=== PATIENT | female | born 1995 | race Caucasian/White ===

== ENCOUNTER 2016-05-08 19:18 | Observation (INO) | payer BC ==
[~2016-05-08] VITALS: Ht 160 cm; Wt 48.0 kg
[~2016-05-08 19:18] MED LIST: CAMILA0.35 MG PO; IBUPROFEN800 MG PO; PRENATAL TABLE1 EAC3 PO; ZOLOFT50 MG PO
[2016-05-08 20:04] LABS: HEMATOCRIT 35.1 % (36.0-46.0); MCH 31.6 PG (29.0-34.0); MCHC 32.8 G/DL (30.0-36.0); MCV 96.4 FL (83-99); RBC DIS.WIDTH-CV 11.9 % (11.8-14.6); RBC DIS.WIDTH-SD 40.3 % (39-53); RED BLOOD COUNT 3.64 M/uL (3.80-5.20); WHITE BLOOD COUNT 8.5 K/uL (4.1-10.2)
[2016-05-08 20:07] LABS: MEAN PLAT.VOLUME 10.7 uM^3 (9.5-12.4)
[2016-05-08 20:10] LABS: PLATELET COUNT 288 K/uL (156-360)
[2016-05-08 20:18] LABS: ADD MIUA? YES; BILIRUBIN NEGATIVE; BLOOD MODERATE; COLOR YELLOW ((YELLOW)); GLUCOSE (STRIP) NEGATIVE; KETONES NEGATIVE; LEUKOCYTES LARGE; NITRITE NEGATIVE; PH, URINE 7.5 (5-8); PROTEIN (STRIP) NEGATIVE; SPECIFIC GRAVITY 1.011 (1.000-1.030); UROBILINOGEN 0.2 MG/DL (0.2-1.0)
[2016-05-08 20:19] LABS: CHLORIDE 104 mEq/L (99-109); POTASSIUM 3.8 mEq/L (3.7-5.4); SODIUM 138 mEq/L (136-147)
[2016-05-08 20:22] LABS: GLUCOSE 73 mg/dL (70-99)
[2016-05-08 20:23] LABS: ANION GAP 10 MEQ/L (2-14)
[2016-05-08 20:24] LABS: TOTAL BILIRUBIN 0.3 mg/dL (0.0-1.0)
[2016-05-08 20:25] LABS: ALKALINE PHOSPHATASE 81 IU/L (3-129); GFR ESTIMATE (CALCULATED) > 59 mL/min/
[2016-05-08 20:26] LABS: UREA NITROGEN (BUN) 11 mg/dL (9-23)
[2016-05-08 20:29] LABS: LIPASE 16 U/L (1.0-51.0)
[2016-05-08 20:35] LABS: QUANTITATIVE HCG < 4.0 MIU/ML
[2016-05-08 20:40] LABS: BACTERIA NONE SEEN; CASTS NONE SEEN /LPF; CRYSTALS NONE SEEN; EPITHELIAL CELLS RARE; MUCUS NONE SEEN; PATHOLOGICAL CAST NONE SEEN; SMALL ROUND CELL NONE SEEN; UCUL ADDED? YES; WHITE BLOOD CELLS TNTC /HPF (0-5); YEAST-LIKE CELL NONE SEEN
[2016-05-08 20:48] LABS: EOSINOPHIL (%) 2.1 % (0-5); EOSINOPHIL COUNT 0.2 K/uL (0-0.3); IMMATURE GRANULOCYTE (%) 0.1 % (0.0-0.7); IMMATURE GRANULOCYTE COUNT 0.1 K/uL; MONOCYTE COUNT 0.5 K/uL (0-0.8); NEUTROPHIL (%) 79.5 % (45-76); NEUTROPHIL COUNT 6.7 K/uL (1.8-6.4)
[2016-05-09] MEDS ORDERED: SALINE SOLUTIO355 ML MC (00:22)
[2016-05-09] MEDS ORDERED: CAMILA0.35 MG PO (00:22)
[2016-05-09 02:17] VITALS: BP 93/52
[2016-05-09 06:09] VITALS: BP 91/50
[2016-05-09 08:00] VITALS: BP 101/57
[2016-05-09 10:32] LABS: HEMATOCRIT 28.9 % (36.0-46.0); MCH 31.1 PG (29.0-34.0); MCHC 32.5 G/DL (30.0-36.0); MCV 95.7 FL (83-99); PLATELET COUNT 230 K/uL (156-360); RBC DIS.WIDTH-CV 12.3 % (11.8-14.6); RBC DIS.WIDTH-SD 43.1 % (39-53); RED BLOOD COUNT 3.02 M/uL (3.80-5.20); WHITE BLOOD COUNT 7.9 K/uL (4.1-10.2)
[2016-05-09 12:00] VITALS: BP 112/63
[2016-05-09 17:50] VITALS: BP 100/54
[2016-05-09 22:57] VITALS: BP 99/57
[2016-05-10 04:00] VITALS: BP 106/63
[2016-05-10 06:33] LABS: HEMATOCRIT 35.3 % (36.0-46.0); MCH 30.5 PG (29.0-34.0); MCV 95.4 FL (83-99); MEAN PLAT.VOLUME 10.7 uM^3 (9.5-12.4); PLATELET COUNT 326 K/uL (156-360); RBC DIS.WIDTH-CV 12.3 % (11.8-14.6); RBC DIS.WIDTH-SD 42.8 % (39-53); WHITE BLOOD COUNT 11.6 K/uL (4.1-10.2)
[2016-05-10 06:48] LABS: ANION GAP 7 MEQ/L (2-14); CHLORIDE 108 MEQ/L (99-109); GFR ESTIMATE (CALCULATED) > 59 mL/min/; GLUCOSE 140 mg/dL (70-99); POTASSIUM 4.3 MEQ/L (3.7-5.4); SAMPLE HEMOLYSIS CHECK 0; SAMPLE ICTERIC CHECK 0; SAMPLE LIPEMIA CHECK 0; SODIUM 138 MEQ/L (136-147); UREA NITROGEN (BUN) 12 mg/dL (9-23)
[2016-05-10 08:32] VITALS: BP 105/55
[2016-05-10 12:32] VITALS: BP 104/60
[2016-05-10] MEDS ORDERED: HYDROCODON-ACE1 EAC7 PO (14:44)
== END 2016-05-10 15:50 | disposition home or self-care (01) ==
LOC: EME 19:18 → 5WEST 05-09 01:15 → EDOF 05-09 01:15 → 3EAST 05-09 01:15 → EDOF 05-09 01:15 → 5WEST 05-09 02:04 → 3EAST 05-09 17:48
PROVIDERS: Internal Medicine; Surgery
DX: O99.63 Diseases of the digestive system complicating the puerperium (principal); K35.3 Acute appendicitis with localized peritonitis; K42.9 Umbilical hernia without obstruction or gangrene; N39.0 Urinary tract infection, site not specified; R10.31 Right lower quadrant pain; R50.9 Fever, unspecified; F32.9 Major depressive disorder, single episode, unspecified; Z86.19 Personal history of other infectious and parasitic diseases; Z88.8 Allergy status to other drugs, medicaments and biological substances
CPT/HCPCS: 74177; 80048; 80053; 81003; 83690; 84702; 85025; 85027; 87086; 88304; 99281; 99285; G0378; J0131; J0696; J1100; J1885; J2250; J2405; J3010; J7030; J7050; S0030